=== PATIENT | male | born 1995 | race Caucasian/White ===

== ENCOUNTER 2024-05-26 10:00 | Outpatient (CLI) | payer BC, SELFPAY ==
--- OUTSIDE RECORDS SUMMARY | 2024-05-27 21:29 | XMS_ITS | Encounter Summary ---
Author Organization [facility] Healthcare Address [address] [place] [address] Care Team Providers Care Proposal Writer Name Role Phone Hussein Quintero MD Primary Care Provider [phone] Jose Augustine DPT Unavailable +06-04 Farhad Song DPT Unavailable +06-04 Jose Augustine DPT Unavailable +06-04 Encounter Details Date Type Department Care Team (Late st Contact Info) Description 10/24/2020 Telephone [facility] [place] [facility] [address] [facility] Advanced Medicine [address] [place] [address] William Waters MD [address] [facility] [address] [facility] [phone] [place], [place] [id number] Social History Tobacco Use Types Packs/Day Years Used Date Smoking Tobacco: Never Smokeless Tobacco: Never AUDIT-C Answer Date Recorded Q1: How often do you have a drink containing alc ohol? 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 Author CCM Chronic Pain Care Plan Chronic Care Management Worsening( 11:29 AM CDT) Viry Nick, RN Note: Problem: Chronic Pain Goals: 1. Minimize further functional decline 2. Maximize quality of life 3. Control pain Strategies: - Activity/exercise program recommendation - Conservative stepwise pain medicine strategy with multi-disciplinary approach - Recommend healthy lifestyle strategies and compensatory methods as needed documented as of this encounter Visit Diagnoses Not on filedocumented in this encounter Care Teams Proposal Writer Relationship Specialty Start Date End Date Hussein Quintero MD PCP - General Family Medicine 10/29/19 Jose Augustine DPT [address] [facility] [address] [address] Physical Therapist Physical Therapy 11/13/20 08/09/21 Farhad Song DPT [address] [address] Physical Therapist Physical Therapy 08/10/21 Jose Augustine DPT [address] [facility] [address] [address] Physical Therapist Physical Therapy 08/10/21 10/06/22 documented as of this encounter
--- OUTSIDE RECORDS SUMMARY | 2024-05-27 21:29 | XMS_ITS | Encounter Summary ---
Author Organization [facility] Healthcare Address [address] [place] [address] Care Team Providers Care Checker Dump Grounds Name Role Phone Hussein Quintero MD Primary Care Provider [phone] Jose Augustnie DPT Unavailable +06-04 Farhad Song DPT Unavailable +06-04 Jose Augustine DPT Unavailable +06-04 Reason for Visit * Reason Onset Date Comments Med Refill 10/11/2020 Encounter Details Date Type Department Care Team (Late st Contact Info) Description 10/11/2020 Telephone [facility] [place] [facility] [address] [facility] Advanced Medicine [address] [place] [address] William Waters MD [address] [facility] [phone] [place], [place] [id number] Med Refill Social History Tobacco Use Types Packs/Day Years [...] on file 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 Gender Identity Male 09/09/2020 12:18 PM CDT [...] on filedocumented in this encounter Care Teams Checker Dump Grounds Relationship Specialty Start Date End Date Hussein Quintero MD PCP - General Family Medicine 10/29/19 Jose Augustine DPT [address] [facility] [address] [facility] [place] [address] Physical Therapist Physical Therapy 11/13/20 08/09/21 Farhad Song DPT [address] [facility] [address] [place] [address] Physical Therapist Physical Therapy 08/10/21 Jose Augustine DPT [address] [facility] [address] [facility] [place] [address] Physical Therapist Physical Therapy 08/10/21 10/06/22 documented as of this encounter
--- OUTSIDE RECORDS SUMMARY | 2024-05-27 21:29 | XMS_ITS | Clinical Summary ---
Author Organization [facility] Address [address] [place] [address] Care Team Providers Care Pharmacy Clerk Name Role Phone Unavailable Primary Care Provider Unavailabl e Social History Tobacco Use Types Packs/Day Years Used Date Smoking Tobacco: Never Assessed Sex and Gender Information Value Date Recorded Sex Assigned at Not on file Legal Sex Male 11:37 PM CDT Gender Identity Not on file Sexual Orientation Not on file Plan of Treatment Health Maintenance Due Date Last Done Comments Hepatitis C Virus (HCV) Screening 1993 Influenza Immunization (#1) 2024 03/05/2019 SARS-COV-2 Immunization ( season) 2024 05/15/2021, 04/24/2021 Respiratory Syncytial Virus (RSV) Immunization (Adult) (1 - 1-dose 75+ series) 01/04/2068 Hepatitis B Immunization Completed 994, 1993, 1993 DTaP/Tdap/Td Immunization Discontinued 2018, 08/09/1994, 1993, Additional history exists TdaP Immunization Completed 03/05/2019 Meningococcal Immunization (ACWY) Aged Out No longer eligible based on patient's age to complete this topic Pneumococcal Immunization Combined Aged Out No longer eligible based on patient's age to complete this topic Rotavirus Immunization Aged Out No lo nger eligible based on patient's age to complete this topic
--- OUTSIDE RECORDS SUMMARY | 2024-05-27 21:29 | XMS_ITS | Encounter Summary ---
Author Organization [facility] Address [address] [place] [address] Phone Care Team Providers Care Weave Room Supervisor Name Role Phone Hussein Quintero MD Primary Care Provider + [phone] Farhad Song DPT Unavailable +06-04 Jose Augustine DPT Unavailable +06-045 Encounter Details Date Type Department Care Team (Latest Contact Info) Description 10/26/2021 Orders Only [facility] Scanning, Provider Social History Tobacco Use Types Packs/Day Years Used Date Smoking Tobacco: Never Smokeless Tobacco: Never AUDIT-C Answer Date Recorded Q1: How often do you have a drink containing alc ohol? Monthly or less 06/05/2021 Q2: How many drinks containi ng alcohol do you have on a typical day when you are drinking? 1 or 2 06/05/2021 Q3: How often do you have si x or more drinks on one occasion? 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 Gender Identity Male 09/09/2020 12:18 PM CDT [...] as needed documented as of this encounter Procedures Procedure Name Priority Date/Time Associated Diagnosis Comments SCAN - LABS 10/26/2021 documented in this encounter Results * SCAN - LABS (10/26/2021) us Provider Scanning Final Result documented in this encounter Visit Diagnoses Not on filedocumented in this encounter Care Teams Weave Room Supervisor Relationship Specialty Start Date End Date Hussein Quintero MD PCP - General Family Medicine 10/29/19 Farhad Song DPT [address] [place] [address] Physical Therapist Physical Therapy 08/10/21 Jose Augustine DPT [address] [facility] [address] [address] Physical Therapist Physical Therapy 08/10/21 10/06/22 documented as of this encounter
--- OUTSIDE RECORDS SUMMARY | 2024-05-27 21:29 | XMS_ITS | Encounter Summary ---
Author Organization [facility] Healthcare Address [address] [place] [address] Care Team Providers Care Manager Document Name Role Phone Hussein Quintero MD Primary Care Provider [phone] Jose Augustine DPT Unavailable +06-04 Farhad Song DPT Unavailable +06-04 Jose Augustine DPT Unavailable +06-04 Reason for Visit * Reason Onset Date Comments Pain 03/21/2021 Encounter Details Date Type Department Care Team (Late st Contact Info) Description 03/21/2021 Telephone [facility] [place] [facility] [address] [facility] Advanced Medicine [address] [place] [address] William Waters MD [phone] [place], [place] [id number] Pain Social History Tobacco Use Types Packs/Day Years Used Date Smoking Tobacco: Never Smokeless Tobacco: Never AUDIT-C Answer Date Recorded Q1: How often do you have a drink containing alc ohol? Monthly or less 03/23/2021 Q2: How many drinks containi ng alcohol do you have on a typical day when you are drinking? 1 or 2 03/23/2021 Q3: How often do you have si x or more drinks on one occasion? 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 Gender Identity Male 09/09/2020 12:18 PM CDT [...] on filedocumented in this encounter Care Teams Manager Document Relationship Specialty Start Date End Date Hussein Quintero MD PCP - General Family Medicine 10/29/19 Jose Augustine DPT [address] [facility] [address] [place] [address] Physical Therapist Physical Therapy 11/13/20 08/09/21 Farhad Song DPT [address] [place] [address] Physical Therapist Physical Therapy 08/10/21 Jose Augustine DPT [address] [facility] [address] [place] [address] Physical Therapist Physical Therapy 08/10/21 10/06/22 documented as of this encounter
--- OUTSIDE RECORDS SUMMARY | 2024-05-27 21:29 | XMS_ITS | Clinical Summary ---
Author Organization [facility] Medical [facility] Address [address] [facility] [place] [address] Care Team Providers Care Cook Chef Name Role Phone Hussein Quintero MD Primary Care Provider [phone] Farhad Song DPT Unavailable +[phone] Allergies Active Allergy Reactions Criticality Noted Date Comments Sulfa (Sulfonamide Antibiotics) Unknown Medications acetaminophen-c affeine 500-65 mg tabletIndicatio ns:tension migraines Take 1 tablet by mouth daily as needed (tension migraines) Active calcium carbonate (TUMS) 500 mg (200 mg elemental calcium) chewable tabletIndicatio ns:Heartburn Take 1 tablet/chew tab (500 mg total) by mouth daily as needed for indigestion or heartburn Active gabapentin (NEURONTIN) 300 mg capsuleIndicati ons:pain Take 1 capsule (300 mg total) by mouth 3 (three) times a day as needed (pain) Active senna-docusate (PERICOLACE) 8.6-50 mg Take 1 tablet by mouth daily 30 tablet 2 4 Active HYDROcodone-jane taminophen (NORCO) 5-325 mg per tabletIndicatio ns:Pain Take 1 tablet by mouth every 6 (six) hours as needed for pain 28 tablet 4 Active methocarbamoL (ROBAXIN) 500 mg tabletIndicatio ns:Muscle Spasm Take 1 tablet (500 mg total) by mouth 4 (four) times a day as needed for muscle spasms 45 tablet 3 4 Active Active Problems Problem Noted Date Diagnosed Date 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 Continue low-carb (<150 g/day), low- glycemic diet. Continue metformin. Reviewed potential benefits of GLP-1 RA; he has preferred not to use and injection as he has a 3 yo at home. Discussed that oral semalgutide would likely not be covered and also not ideal with his hectic morning schedule. Discussed option of auotinjector pen so that he does not have separate/exposed needles and he is willing to try Trulicity. No personal or family history of MEN-2 or thyroid CA. Assessment & Plan (12/07/2021 9:44 AM CDT): A1C at 5.8.Discussed insulin resistance including effect on weight and risk for progression to diabetes. Recommended low-carb, low-glycemic diet; choose whole grains and avoid more highly processed carbohydrates. Discussed potential benefits of this with relation to gut microbiome. Referred to ADA and [facility] websites for additional information on topics including glycemic index/carbohydrate choices, protein sources. Discussed use of GLP-1 however he is not interested in using injection given toddler in the home and fear of needles around. Discussed use of metformin and he is interested in trying this. Will start metformin XR 500mg for 7 days to increase to 1000mg daily if tolerating. Metabolic and nutritional disorder 09/03/2021 Assessment & Plan (12/06/2021 6:37 PM CDT): Continue low-carb (<150 g/day), low-glycemic diet. Assessment & Plan (09/03/2021 5:04 PM CDT): Labs. Discussed increased risk for DM in setting of obesity and FHx DM. Discussed insulin resistance including effect on weight and risk for progression to diabetes. Recommended low-carb, low-glycemic diet; choose whole grains and avoid more highly processed carbohydrates. Discussed potential benefits of this w/r/t gut microbiome. Referred to ADA and [facility] websites for additional information on topics including glycemic index/carbohydrate choices, protein sources. More detailed recommendations pending review of labs and food record. Class 2 obesity 09/03/2021 Assessment & Plan (03/11/2022 9:36 AM RISK INTERN): Obesity is improving..Commended on weight loss to date and discussed anticipated health benefits/risk reduction with this degree of loss. Plan: Diet interventions: as noted.., Regular aerobic exercise program discussed. and Medication as prescribed. Assessment & Plan (12/06/2021 6:36 PM CDT): Obesity is improving. Diet interventions: as noted. Regular aerobic exercise program discussed. Assessment & Plan (09/03/2021 5:00 PM CDT): Obesity is unchanged. General weight loss/lifestyle modification strategies discussed (elicit support from others; identify saboteurs; non-food rewards, etc). Diet interventions: as noted. Informal exercise measures discussed, e.g. taking stairs instead of elevator. Regular aerobic exercise program discussed. Referred to PCP for c/o occasional chest discomfort prior to beginning exercise program. More detailed recommendations pending review of labs and food record. Fatigue 09/03/2021 Assessment & Plan (12/06/2021 6:35 PM CDT): Energy better slightly, encouraged to start OTC Vitamin D supplementation of 800 units daily for D insufficiency at 20.3. Assessment & Plan (09/03/2021 4:58 PM CDT): Labs. Discussed importance of adequate sleep; good sleep hygiene in controlling weight as well as for overall health. Weight loss counseling, encounter for 09/03/2021 Assessment & Plan (03/11/2022 9:17 AM RISK INTERN): Reviewed calorie restriction based on BMR as previously detailed. Reviewed recommendation/goal of >/= 150 minutes/week moderate-intensity aerobic exercise. Asked to keep detailed food diary for at least 1 week and bring to next visit and/or continue tracking on phone. Assessment & Plan (12/06/2021 6:35 PM CDT): Reviewed calorie restriction based on BMR as previously detailed. Reviewed recommendation/goal of >/= 150 minutes/week moderate-intensity aerobic exercise. Asked to try to continue tracking diet/drinks. Assessment & Plan (09/03/2021 4:59 PM CDT): Discussed that significant health benefits/risk reduction may be seen with even 5% weight loss. Discussed that weight loss will require calorie deficit. Calculated basal metabolic rate and estimated total energy expenditure; discussed 500-1000 kcal/day deficit to lose 1-2 lb per week. Asked to keep detailed food diary for at least 1 week and bring to next visit. Discussed setting SMART goals. Discussed relatively small, although significant, role of exercise in weight loss; greater importance in weight maintenance as shown in Look Ahead study and National Weight Control Registry. Constipation 09/03/2021 Assessment & Plan (09/03/2021 5:06 PM CDT): Recommended daily fiber supplement containing inulin(fiber chewables) or wheat dextrin(benefiber). Discussed possible benefits with relation to gut microbiome and weight. Miralax prn. Chest discomfort 09/03/2021 Assessment & Plan (09/03/2021 5:22 PM CDT): Described recent chest discomfort with period of dizziness following. Denied current CP, SOB or dizziness. Instructed pt to follow up with PCP tomorrow and to go to ER if chest discomfort returns. Sacroiliitis 11/21/2020 Ocular migraine 11/08/2019 Assessment & Plan (08/31/2021 12:32 PM CDT): Still gets ocular migraine sx. Not unmanageable. Not as visual as more tension around the eye with pressure. Photophobia and needs to close the eye. No associated neurologic symptoms. Normal ocular exam. Offered to consider prophylaxis with medical doctor but pt defers. Consider decreasing stress, caffeine, etc. Call if worsens. Assessment & Plan (11/08/2019 10:22 AM CDT): Still gets ocular migraine sx. Not unmanageable. No associated neurologic symptoms. Normal ocular exam. Offered to consider prophylaxis with medical doctor but pt defers. Consider decreasing stress, caffeine, etc. Call if worsens. Allergic conjunctivitis of both eyes 10/29/2019 Assessment & Plan (10/29/2019 11:30 AM CDT): Add hot compresses with lid scrubs to alleviate crusting of lashes and remove pollen. Recommend trail of lubricant eye drops 4 times/day. If still itchy and symptomatic, try Zaditor OTC drops 2x/s day. Chronic pain 11/18/2015 Lumbar radiculopathy 11/18/2015 Displacement of lumbar disc with radiculopathy 0 11/18/2015 Lumbago 10/27/2015 Hyperlipoproteinemia 07/22/2012 Encounters Date Type Department Care Team Description 03/05/2024 Telephone [facility] [address] [place] [address] Office [facility] [address] [place] [phone] Jim Lopez DO 02/26/2024 12:30 PM CDT Telemedicine [facility] [address] [place] [address] Office [facility] [address] [place] [phone] Jim Lopez DO Lumbar radiculopathy (Primary Dx); Displacement of lumbar disc with radiculopathy 02/26/2024 Orders Only [facility] [address] [place] [address] Office [facility] [address] [place] [phone] Jim Lopez DO Lumbar radiculopathy (Primary Dx) from Last 3 Months Immunizations Name Administration Dates Next Due DTP 1993,1993,1993 DTP / HiB 08/09/1994 Hep B, Adolescent or Pediatric 1993,1992,1993 HiB 1993,1993,1993 Influenza, Quadrivalent, Rec ombinant, Egg Free, Preservative Free, Intramuscular 03/05/2019 MMR 08/09/1994 OPV 1993,1993,1993 Tdap 03/05/2019 Surgical History Surgery Date Site/Laterality Comments INGUINAL HERNIA REPAIR Inguinal Hernia Repair - (Added by TW Conv) OK INJ LUMBAR/SACRAL,W/WO CNTRST Corticosteroid Injection Interlaminar Approach Lumbar - (Added by TW Conv) NOSE SURGERY 05/05/1998 - 05/04/1999 Medical History Medical History Date Comments Low back pain Chronic pain disorder Low back pain Low back pain Family History Medical History Relation Name Comments Diabetes Father HTN Father Hyperlipidemia Father Obesity Father Stroke Father Diabetes Other 1 Family history of diabetes mellitus - (Added by TW Conv) Hypertension Other 2 Family history of hypertension - (Added by TW Conv) Macular degeneration Paternal Grandmother Relation Name Status Comments Father Other 1 Other 2 Paternal Grandmother Social History Tobacco Use Types Packs/Day Years Used Date Smoking Tobacco: Some Days Cigars Started: 2021 Smokeless Tobacco: Never Tobacco Cessation:Ready to Q uit: Not Asked; Counseling Given: Not Answered Comments:Socially AUDIT-C Answer Date Recorded Q1: How often do you have a drink containing alc ohol? 2-4 times a month 01/08/2024 Q2: How many drinks containi ng alcohol do you have on a typical day when you are drinking? 3 or 4 01/08/2024 Q3: How often do you have si x or more drinks on one occasion? Never 01/08/2024 Hunger Vital Sign Answer Date Recorded Within the past 12 months, y ou worried that your food would run out before you got the money to buy more. Never true 08/08/19 23 Within the past 12 months, t he food you bought just didn't last and you didn't have money to get more. Never true 08/07/2022 Personal Safety Answer Date Recorded Have you ever been in or are you currently in a harmful physical or emotional relationship or is someone making you feel afraid or unsafe? 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 file Not on file Not on file Obstetrics History Last Filed Vital Signs Vital Sign Reading Time Taken Comments Blood Pressure 130/78 01/08/2024 3:00 PM CDT Pulse 70 01/08/2024 3:00 PM CDT Temperature 37.1 ??C (98.8 ??F) 01/08/2024 1 2:00 PM CDT Respiratory Rate 24 01/08/2024 3:00 PM CDT Oxygen Saturation 94% 01/08/2024 3:00 PM CDT Inhaled Oxygen Concentration - - Weight 120.4 kg (265 lb 6.4 oz) 01/08/2024 6:09 AM CDT Height 177.8 cm (5' 10) 01/08/2024 6:09 AM CDT Body Mass Index 38.08 01/08/2024 6:09 AM CDT Plan of Treatment Health Maintenance Due Date Last Done Comments Depression Screening 1993 Hepatitis C Screening 1993 Pneumococcal vaccine <65 (1 of 2 - PCV) 1999 Varicella Vaccines (1 of 2 - 13+ 2-dose series) 2006 Regular Well Visit/Exam 18-64 2011 Covid-19 Vaccine ( season) 2024 05/15/2021, 04/24/2021 Influenza Vaccine (#1) 2024 03/05/2019 DTaP/Tdap/Td Vaccine (6 - Td or Tdap) 03/05/2029 03/05/2019, 08/09/1994, 1993, Additional history exists HPV Vaccines Aged Out No longer eligi ble based on patient's age to complete this topic Goals Goal Patient Goal Type Associated Problems Recent Progress Patient-Stated? Author CCM Chronic Pain Care Plan Chronic Care Management Worsening( 11:29 AM CDT) No Viry Rivera, RN Note: Problem: Chronic Pain Goals: 1. Minimize further functional decline 2. Maximize quality of life 3. Control pain Strategies: - Activity/exercise program recommendation - Conservative stepwise pain medicine strategy with multi-disciplinary approach - Recommend healthy lifestyle strategies and compensatory methods as needed Insurance BLUE ACCESS OOS BLUE ACCESS OOS Care Teams Cook Chef Relationship Specialty Start Date End Date Hussein Quintero MD PCP - General Family Medicine 10/29/19 Farhad Song, KRYSTA [address] [facility] [address] [place] [address] Physical Therapist Physical Therapy 08/10/21
--- OUTSIDE RECORDS SUMMARY | 2024-05-27 21:29 | XMS_ITS | Referral Summary ---
Author Organization [facility] 2 Address [address] [place] [address] Care Team Providers Care Casing Fluid Tender Name Role Phone Hussein Quintero MD Primary Care Provider + -[phone] Farhad Song DPT Unavailable +06-04 [phone] Encounters Date Type Department Care Team Description 03/05/2024 Telephone [facility] [address] [place] [address] Office [facility] [address] [place] [phone] Jim Lopez DO 02/26/2024 Orders Only [facility] [address] [place] [address] Office [facility] [address] [place] [phone] Jim Lopez DO Lumbar radiculopathy (Primary Dx) 02/26/2024 12:30 PM CDT Telemedicine [facility] [address] [place] [address] Office [facility] [address] [place] [phone] Jim Lopez DO Lumbar radiculopathy (Primary Dx); Displacement of lumbar disc with radiculopathy from Last 3 Months Allergies Active Allergy Reactions Criticality Noted Date [...] 12/06/2021 Assessment & Plan (03/11/2022 9:35 AM CONCERT PIANIST): Reviewed most recent labs available. Continue low-carb [...] to gut microbiome. Referred to ADA and [employer] websites for additional information on topics including [...] w/r/t gut microbiome. Referred to ADA and [facility] websites for additional information on topics including glycemic index/carbohydrate choices, protein sources. More detailed recommendations pending review of labs and food record. Class 2 obesity 09/03/2021 Assessment & Plan (03/11/2022 9:36 AM CONCERT PIANIST): Obesity is improving..Commended on weight loss to [...] 09/03/2021 Assessment & Plan (03/11/2022 9:17 AM CONCERT PIANIST): Reviewed calorie restriction based on BMR as [...] radiculopathy 0 11/18/2015 Lumbago 10/27/2015 Hyperlipoproteinemia 07/22/2012 Immunizations Name Administration Dates Next Due DTP 1993,1993,1993 DTP / HiB 08/09/1994 Hep B, Adolescent or Pediatric 1993,1992,1993 HiB 1993,1993,1993 Influenza, Quadrivalent, Rec ombinant, Egg Free, Preservative Free, Intramuscular 03/05/2019 MMR 08/09/1994 OPV 1993,1993,1993 Tdap 03/05/2019 Social History Tobacco Use Types Packs/Day Years [...] on file Legal Sex Male 9:57 PM CONCERT PIANIST Gender Identity Male 09/09/2020 12:18 PM CDT Sexual Orientation Straight 09/09/2020 12 :18 PM CDT 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 Author CCM Chronic Pain Care Plan Chronic Care Management Worsening( 11:29 AM CDT) Viry Nick RN Note: Problem: Chronic Pain Goals: 1. Minimize further functional decline 2. Maximize quality of life 3. Control pain Strategies: - Activity/exercise program recommendation - Conservative stepwise pain medicine strategy with multi-disciplinary approach - Recommend healthy lifestyle strategies and compensatory methods as needed Insurance [employer] OOS [employer] OOS BLUE ACCESS OOS Care Teams Casing Fluid Tender Relationship Specialty Start Date End Date Hussein Quintero MD PCP - General Family Medicine 10/29/19 Farhad Song, KRYSTA [address] [facility] [address] [place] [address] Physical Therapist Physical Therapy 08/10/21
--- OUTSIDE RECORDS SUMMARY | 2024-05-27 21:29 | XMS_ITS | Encounter Summary ---
Author Organization [facility] Healthcare Address [address] [place] [address] Care Team Providers Care Line Up Machine Operator Name Role Phone Hussein Quintero MD Primary Care Provider +[phone] Jose Augustine DPT Unavailable +06-04 Farhad Song DPT Unavailable +06-04 Jose Augustine DPT Unavailable +06-04 Reason for Visit * Reason Onset Date Comments Prior Auth 06/08/2021 Lidocaine Patch 5% Encounter Details Date Type Department Care Team (Late st Contact Info) Description 06/08/2021 Telephone [facility] [place] [facility] [address] [facility] Advanced Medicine [address] [place] [address] William Waters MD [address] 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 Gender Identity Male 09/09/2020 12:18 PM CDT [...] on filedocumented in this encounter Care Teams Line Up Machine Operator Relationship Specialty Start Date End Date Hussein Quintero MD PCP - General Family Medicine 10/29/19 Jose Augustine DPT [address] [place] [id number] [address] Physical Therapist Physical Therapy 11/13/20 08/09/21 Farhad Song DPT [address] [address] Physical Therapist Physical Therapy 08/10/21 Jose Augustine DPT 4[address] [facility] [address] [address] Physical Therapist Physical Therapy 08/10/21 10/06/22 documented as of this encounter
--- OUTSIDE RECORDS SUMMARY | 2024-05-27 21:29 | XMS_ITS | Continuity of Care Document ---
Author Organization [facility] Address [address] [place] [address] [address] [place] [address] Phone Care Team Providers Care Mayonnaise Mixer Name Role Phone Unavailable Unavailable Unavailable Advance Directives Directive Yes / No Effective Date File Name No Information Encounters Encounter Description Practice Location Reason(s) For Visit Diagnoses Date Provider Providers Copied on Encounter [facility], [address], [place], [place], [id number], [place] tel:[phone] SEC López LOVELACE Professional No Information 1 No Information Family History Family Member Type Diagnosis Age At Onset No Information Payers Payer name Insurance type Covered alliance party ID Authoriza tion(s) No Information Social History Type Description Quantity Date Captured Comments Sex Male Smoking Status No Information Chief Complaint And Reason For Visit No Information Reason For Referral Reason For Referral No Information History Of Present Illness Encounter Date Complaint History Of Prese nt Illness No Information Functional Status Date Functional Assessmen t No Information Instructions Date Instruction Additional Infor mation No Information Assessments Type Assessment Date No Information Patient Care Teams Name Effective Dates (start - stop) Status Members No Information
--- OUTSIDE RECORDS SUMMARY | 2024-05-27 21:29 | XMS_ITS | Encounter Summary ---
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 Gender Identity Male 09/09/2020 12:18 PM [...] Date/Time Associated Diagnosis Comments SCAN - LABS 12/04/2021 documented in this encounter Results * SCAN - LABS (12/04/2021) us Provider Scanning Final Result documented in this encounter Visit Diagnoses Not on filedocumented in this encounter Care Teams Senior Net Web Developer Relationship Specialty Start Date End Date Hussein Quintero MD PCP - General Family Medicine 10/29/19 Farhad Song DPT [id number] [place] [address] Physical Therapist Physical Therapy 08/10/21 Jose Augustine DPT 4[address] [facility] [address] [address] Physical Therapist Physical Therapy 08/10/21 10/06/22 documented as of this encounter
--- OUTSIDE RECORDS SUMMARY | 2025-02-07 13:56 | XMS_ITS | Encounter Summary ---
Author Organization [facility] Healthcare Address [address] [place] [address] Care Team Providers Care Mechanical Project Engineer Name Role Phone Hussein Quintero MD Primary Care Provider +[phone] Jose Augustine DPT Unavailable +06-04 Farhad Song DPT Unavailable +06-04 Jose Augustine DPT Unavailable +06-04 Encounter Details Date Type Department Care Team (Late st Contact Info) Description 10/24/2020 Telephone [facility] [place] [facility] [address] [facility] Advanced Medicine [address] [place] [address] William Waters MD [address] [facility] [address] [facility] [phone] [place], [place] [id number] Social History Tobacco Use Types Packs/Day Years [...] on file 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 [address] [address] Physical Therapist Physical Therapy 11/13/20 08/09/21 Farhad Song DPT [address] [address] Physical Therapist Physical Therapy 08/10/21 Jose Augustine DPT [address] [facility] [address] [address] Physical Therapist Physical Therapy 08/10/21 10/06/22 documented as of this encounter
--- OUTSIDE RECORDS SUMMARY | 2025-02-07 13:56 | XMS_ITS | Encounter Summary ---
Author Organization [facility] Healthcare Address [address] [place] [address] Care Team Providers Care Venipuncturist Name Role Phone Hussein Quintero MD Primary Care Provider +[phone] Jose Augustine DPT Unavailable +06-04 Farhad Song DPT Unavailable +06-04 Jose Augustine DPT Unavailable +06-04 Reason for Visit * Reason Onset Date Comments Med Refill 10/11/2020 Encounter Details Date Type Department Care Team (Late st Contact Info) Description 10/11/2020 Telephone [facility] [place] [facility] [address] [facility] Advanced Medicine [address] [place] [address] William Waters MD [phone] [place], [place] [id number] Med Refill Social History Tobacco Use Types [...] on file 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 [address] [place] [address] Physical Therapist Physical Therapy 08/10/21 Jose Augustine DPT [address] [facility] [address] [address] [place] [address] Physical Therapist Physical Therapy 08/10/21 10/06/22 documented as of this encounter
--- OUTSIDE RECORDS SUMMARY | 2025-02-07 13:56 | XMS_ITS | Clinical Summary ---
Author Organization [facility] Medical [facility] 2 Address [address] [facility] [place] [address] Care Team Providers Care Marine Equipment Engineer Name Role Phone Hussein Quintero MD Primary Care Provider +[phone] Farhad Song DPT Unavailable +06-04 [phone] Allergies Active Allergy Reactions Criticality Noted Date [...] muscle spasms 45 tablet 3 4 Active Additional Information Patient not taking.Reported on 10/27/2024 PARoxetine (PAXIL) 20 mg tablet 5 Active Xyosted 75 mg/0.5 mL auto-injector 5 Active Active Problems Problem Noted Date Diagnosed Date Displacement of lumbar inter vertebral disc with radiculopathy 01/08/2024 Cervicalgia 09/26/2023 Chronic use of opiate drug for therapeutic purpo se 08/10/2022 Prediabetes 12/06/2021 Assessment & Plan (03/11/2022 9:35 AM FULLING MILL OPERATOR): Reviewed most recent labs available. Continue low-carb [...] to gut microbiome. Referred to ADA and [facility] websites for additional information on topics [...] w/r/t gut microbiome. Referred to ADA and [employer] websites for additional information on topics including glycemic index/carbohydrate choices, protein sources. More detailed recommendations pending review of labs and food record. Class 2 obesity 09/03/2021 Assessment & Plan (03/11/2022 9:36 AM FULLING MILL OPERATOR): Obesity is improving..Commended on weight loss to [...] 09/03/2021 Assessment & Plan (03/11/2022 9:17 AM FULLING MILL OPERATOR): Reviewed calorie restriction based on BMR as [...] 0 11/18/2015 Lumbago 10/27/2015 Hyperlipoproteinemia 07/22/2012 Immunizations Immunization Administration Dates Next Due DTP 1993,1993,1993 DTP / HiB 08/09/1994 Hep B, Adolescent or Pediatric 1993,1992,1993 HiB 1993,1993,1993 Influenza, Quadrivalent, Rec ombinant, Egg Free, Preservative Free, Intramuscular 03/05/2019 MMR 08/09/1994 OPV 1993,1993,1993 Tdap 03/05/2019 Surgical History Surgery Date Site/Laterality Comments INGUINAL HERNIA REPAIR Inguinal Hernia Repair - (Added by TW Conv) NOSE SURGERY 05/05/1998 - 05/04/1999 BACK SURGERY Medical History Medical History Date Comments Low back pain Chronic pain disorder Morbid obesity (HCC) Family History Medical History Relation Name Comments COPD Father [place] Paulo Diabetes Father [place] Paulo HTN Father [place] Paulo Hyperlipidemia Father [place] Paulo Hypertension Father [place] Schlewesley Obesity Father [place] Schlewesley Stroke Father [place] Paulo Cancer Maternal Grandfather Brayan Kelley Diabetes Other 1 Family history of diabetes mellitus - (Added by TW Conv) Hypertension Other 2 Family history of hypertension - (Added by TW Conv) Heart attack Paternal Grandfather Great Grandfather Macular degeneration Paternal Grandmother Relation Name Status Comments Father [place] Bates Maternal Grandfather Brayan Kelley Alive Other 1 Other 2 Paternal Grandfather Great Grandfather Alive Paternal Grandmother Social History Tobacco Use Types Packs/Day Years Used Date Smoking Tobacco: Some Days Cigars Started: 2021 Passive Smoke Exposure: Past Smokeless Tobacco: Never Tobacco Cessation:Ready to Q uit: Not Asked; Counseling Given: Not Answered Comments:Socially AUDIT-C Answer Date Recorded Q1: How often do you have a drink containing alc ohol? 2-4 times a month 10/27/2024 Q2: How many drinks containi ng alcohol do you have on a typical day when you are drinking? 1 or 2 10/27/2024 Q3: How often do you have si x or more drinks on one occasion? 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 Not on file Not on file Not on file Obstetrics History Last Filed Vital Signs Vital Sign Reading Time Taken Comments Blood Pressure 139/91 10/27/2024 2:30 PM CDT Pulse 79 10/27/2024 2:30 PM CDT Temperature 36.7 C (98.1 F) 10/27/2024 2:30 PM CDT Respiratory Rate 24 01/08/2024 3:00 PM CDT Oxygen Saturation 95% 10/27/2024 2:30 PM CDT Inhaled Oxygen Concentration - - Weight 126.8 kg (279 lb 9.6 oz) 10/27/2024 2:30 PM CDT Height 177.8 cm (5' 10) 10/27/2024 2:30 PM CDT Body Mass Index 40.12 10/27/2024 2:30 PM CDT Plan of Treatment Health Maintenance Due Date Last Done Comments Depression Screening 1993 Hepatitis C Screening 1993 Varicella Vaccines (1 of 2 - 13+ 2-dose series) 2006 Regular Well Visit/Exam 18-64 2011 Pneumococcal vaccine <65 (1 of 2 - PCV) 01/04/2012 HPV Vaccines (1 - 3-dose SCD M series) 01/04/2020 Covid-19 Vaccine (3 - 2024-2 6 season) 2025 05/15/2021, 04/24/2021 Influenza Vaccine (#1) 2025 03/05/2019 DTaP/Tdap/Td Vaccine (6 - Td or Tdap) 03/05/2029 03/05/2019, 08/09/1994, 1993, Additional history exists Hepatitis B Screening Completed 1993 , 1993, 1993 Goals Goal Patient Goal Type Associated Problems Recent Progress Patient-Stated? Author CCM Chronic Pain Care Plan Chronic Care Management Worsening( 11:29 AM CDT) Vriy Nick, RN Note: Problem: Chronic Pain Goals: 1. Minimize further functional decline 2. Maximize quality of life 3. Control pain Strategies: - Activity/exercise program recommendation - Conservative stepwise pain medicine strategy with multi-disciplinary approach - Recommend healthy lifestyle strategies and compensatory methods as needed Insurance [employer] OOS [employer] ACCESS OOS [employer] ACCESS OOS Care Teams Marine Equipment Engineer Relationship Specialty Start Date End Date Hussein Quintero MD PCP - General Family Medicine 10/29/19 Farhad Song DPT 4[address] [facility] [address] [place] [address] Physical Therapist Physical Therapy 08/10/21
--- OUTSIDE RECORDS SUMMARY | 2025-02-07 13:56 | XMS_ITS | Clinical Summary ---
Author Organization [facility] Address [address] [place] [address] Care Team Providers Care Paint Mixer Machine Name Role Phone Unavailable Primary Care Provider [...] Comments Hepatitis C Virus (HCV) Screening 1993 Human Papillomavirus (HPV) Immunization (1 - 3-dose SCDM series) 01/04/2020 Influenza Immunization (#1) 2025 03/05/2019 SARS-COV-2 Immunization ( season) 2025 05/15/2021, 04/24/2021 Respiratory Syncytial Virus (RSV) Immunization [...]
--- OUTSIDE RECORDS SUMMARY | 2025-02-07 13:56 | XMS_ITS | Encounter Summary ---
Author Organization [facility] Healthcare Address [address] [place] [address] Care Team Providers Care Pilates Instructor Name Role Phone Hussein Quintero MD Primary Care Provider +[phone] Jose Augustine DPT Unavailable +06-04 Farhad Song DPT Unavailable +06-04 Jose Augustine DPT Unavailable +06-04 Reason for Visit * Reason Onset Date Comments Prior Auth 06/08/2021 Lidocaine Patch 5% Encounter Details Date Type Department Care Team (Late st Contact Info) Description 06/08/2021 Telephone [facility] [place] [facility] [address] [facility] Advanced Medicine [address] [place] [address] William Waters MD 49[address] [facility] [phone] [place] [address] Prior Auth (Lidocaine Patch 5% ) Social [...] on file Legal 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
--- OUTSIDE RECORDS SUMMARY | 2025-02-07 13:56 | XMS_ITS | Encounter Summary ---
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
--- OUTSIDE RECORDS SUMMARY | 2025-02-07 13:56 | XMS_ITS | Encounter Summary ---
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
--- OUTSIDE RECORDS SUMMARY | 2025-02-07 13:56 | XMS_ITS | Encounter Summary ---
Author Organization [facility] Healthcare Address [address] [place] [address] Care Team Providers Care Slurry Plant Operator Name Role Phone Hussein Quintero MD Primary Care Provider +[phone] Jose Augustine DPT Unavailable +06-04 Farhad Song DPT Unavailable +06-04 Jose Augustine DPT Unavailable +06-04 Reason for Visit * Reason Onset Date Comments Pain 03/21/2021 Encounter Details Date Type Department Care Team (Late st Contact Info) Description 03/21/2021 Telephone [facility] [place] [facility] [address] [facility] Advanced Medicine [address] [place] [address] William Waters MD [phone] [place], [place] [id number] Pain Social History Tobacco Use Types Packs/Day [...] on file 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 Author CCM Chronic Pain Care Plan Chronic Care Management Worsening( 11:29 AM CDT) Viry Nick, MARGUERITE Note: Problem: Chronic Pain Goals: 1. Minimize further functional decline 2. Maximize quality of life 3. Control pain Strategies: - Activity/exercise program recommendation - Conservative stepwise pain medicine strategy with multi-disciplinary approach - Recommend healthy lifestyle strategies and compensatory methods as needed documented as of this encounter Visit Diagnoses Not on filedocumented in this encounter Care Teams Slurry Plant Operator Relationship Specialty Start Date End Date Hussein Quintero MD PCP - General Family Medicine 10/29/19 Jose Augustine, IDAT [address] [facility] [address] [place] [address] Physical Therapist Physical Therapy 11/13/20 08/09/21 Farhad Song DPT [address] [place] [address] Physical Therapist Physical Therapy 08/10/21 Jose Augustine DPT [address] [facility] [address] [place] [address] Physical Therapist Physical Therapy 08/10/21 10/06/22 documented as of this encounter
--- NOTE | 2025-02-20 19:32 | P.SLEEP_ITS ---
Sleep Study - Home Unattended Date of Study: 05/26/24 Ordering Provider: Hussein Quintero MD Interpreting Provider: Shahana Ochoa MD Home Sleep Study Type: Watch PAT Height: 1.78 m Weight: 121.109 kg Body Mass Index: 38.2 Neck Circumference (inches): 17.5 [place]: 0 Reason for Sleep Study Fatigue, abnormal sleep pattern, anxiety, behavioral changes He performed the home sleep test on Feb 02, 2025. Sleep History Mathtew Bates is a 30-year-old man who has metabolic syndrome and behavioral changes with irritability and abnormal weight gain. He did not complete the sleep questionnaire so details about his sleep history are not available. The patient received the home sleep test May 26, 2024. He completed the study in February 2025. His primary care physician indicates that the patient complained of daytime sleepiness, difficulty while sleeping, Irregular sleep pattern, anxiety, intense fatigue, lethargy and malaise. He had a low testosterone level. His irritability and anger improved with Paxil. [facility] Past Medical History Medical History Unspecified vitamin D deficiency Surgical History Surgical History S/P lumbar discectomy Social History Social History Smoking status: Never smoker Tobacco type: cigars Alcohol intake: current Substance use type: does not use Lack of Transportation: No Lack of Food: Never True Current Housing: I Have Housing Concerned About Future Housing: No Difficulty Paying Gas/Electric Bills: No Difficulty Paying for Meds: No Currently Unemployed: No Education: Bachelor's Degree Difficulty w/ Childcare or Family Care: No Medications Home Medications ?Medication ?Instructions ?Recorded ?Confirmed ?Type hydrocortisone acetate 25 mg 25 mg RECTAL BID #12 ea 0 12/27/24 12/27/24 Rx rectal suppository testosterone cypionate 200 mg/mL 400 mg (2 mL) IM ART HLY 3 months 01/12/25 Rx intramuscular oil #10 mL (Depo-Testosterone) montelukast 10 mg tablet 10 mg PO DAILY #90 tabs 02/02 07/27 Rx Sleep Procedure The sleep study was completed using WatchPAT a technically adequate device with seven channels: peripheral arterial tone, actigraphy, body position, snore, respiratory movement, pulse oximetry, sleep staging, and heart rate. Prior to using the device, the patient received verbal and written instructions for its application and was provided with the help desk phone number for additional telephonic instruction with 24-hour availability of qualified personnel to ans wer questions. Sleep Architecture The total recording time is 7 hrs, 24 min. The total sleep time is 6 hrs, 58 min. Sleep latency is 17 minutes. REM latency is 33 minutes. The patient had 2 episodes of waking. Sleep architecture shows 26.1% deep sleep, 41.4% light sleep, and 32.5% stage REM. The patient spent 93.6% of total sleep time in the supine position. Sleep efficiency was 94%. Respiratory Analysis The overall AHI (pAHI 3%:) is 23.1. The central AHI is 1.3. The AHI was 8.1 in NREM and 54.4 in REM sleep. The AHI was 23.5 in Supine and 17.8 in Non-supine sleep. Percent of Leonel Ernst respirations is 0%. Oximetry Data The oxygen desaturation index (KAMRAN 4%:) is 13.6. The mean saturation is 93%, and the lowest saturation is 81%. Time spent with saturation < 88% is 4.7 minutes. Snoring Profile Snoring average intensity is 42 dB. The patient snored above 45 decibels for 79.0 minutes, 18.9% of sleep time. Cardiac Profile The average pulse rate is 78 beats per minutes. The lowest pulse rate is 49 bpm. The highest pulse rate is 100 bpm. Cardiac rhythm analysis in sleep does not show atrial fibrillation. Assessment and Plan Assessment and Plan (1) Obstructive sleep apnea: Code(s): G47.33 - Obstructive sleep apnea (adult) (pediatric) Status: Acute Assessment and Plan: This home sleep test using WatchPat performed on February 02, 2025 shows moderate obstructive sleep apnea, the apnea-hypopnea index is 23.1 (p>3%) with desaturation to 81% and 4.7 minutes spent below 88%. He had loud continuous snoring and snoring exceeding 45 decibels for 79 minutes. AHI using 4% criteria is moderately elevated at 16.3. His central apnea-hypopnea index was 1.3, within the normal range. He is a candidate for PAP therapy. I recommend that this patient be prescribed Resmed AirSense 11 AutoPAP 5-15 cm H2O, CPAP mask/filters/tubing and humidifier chamber. This should be used with all episodes of sleep. Compliance should be reviewed within 31-90 days of starting therapy for usage greater than 4 hours per night greater than 70% of the nights. The patient should be asked about symptoms such as excessive daytime sleepiness, quality of sleep, decreased nocturia, increased mental functioning such as memory, mood, and concentration. If this is not tolerated, consider in-lab CPAP titration with a sleep aid to use, if needed, during the titration. He should not nap on the day of the titration. BMI is 38.3. Weight management is advised. Clinical data suggests that weight loss of 10% can reduce the severity of respiratory events and snoring and improve AHI by as much as 25%. Data The data obtained during this sleep study is adequate for interpretation. Certification This sleep study has been reviewed by a board certified sleep medicine physician.
[2025-02-20 19:34] VITALS: BMI 38.2
--- NOTE | 2025-03-14 11:55 | P.SLEEP_ITS ---
Sleep Study - Home Unattended Date of Study: 05/26/24 Ordering Provider: Hussein Quintero MD Interpreting Provider: Shahana Ochoa MD Home Sleep Study Type: Watch PAT Height: 1.78 m Weight: 121.109 kg Body Mass Index: 38.2 Neck Circumference (inches): 17.5 [place]: 0 Reason for Sleep Study Obesity, fatigue, snoring Sleep History Matthew Bates is a 30-year-old man with hypogonadism, metabolic syndrome, fatigue, IBS, stress. He completed at home sleep test on Feb 11, 2025. His primary care doctor ordered a home sleep test for diagnosis. [facility] Past Medical History Medical History Unspecified vitamin D deficiency Surgical History Surgical History S/P lumbar discectomy Social History Social History Smoking status: Never smoker Tobacco type: cigars Alcohol intake: current Substance use type: does not use Lack of Transportation: No Lack of Food: Never True Current Housing: I Have Housing Concerned About Future Housing: No Difficulty Paying Gas/Electric Bills: No Difficulty Paying for Meds: No Currently Unemployed: No Education: Bachelor's Degree Difficulty w/ Childcare or Family Care: No Medications Home Medications ?Medication ?Instructions ?Recorded ?Confirmed ?Type hydrocortisone acetate 25 mg 25 mg RECTAL BID #12 ea 0 12/27/24 12/27/24 Rx rectal suppository testosterone cypionate 200 mg/mL 400 mg (2 mL) IM ART HLY 3 months 01/12/25 Rx intramuscular oil #10 mL (Depo-Testosterone) montelukast 10 mg tablet 10 mg PO DAILY #90 tabs 02/02 07/27 Rx CPAP #1 ea 02/23/25 Rx Sleep Procedure The sleep study was completed using WatchPAT a technically adequate device with seven channels: peripheral arterial tone, actigraphy, body position, snore, respiratory movement, pulse oximetry, sleep staging, and heart rate. Prior to using the device, the patient received verbal and written instructions for its application and was provided with the [employer] phone number for additional telephonic instruction with 24-hour availability of qualified personnel to answer questions. Sleep Architecture The total recording time is 7 hrs, 24 min. The total sleep time is 6 hrs, 58 min. Sleep latency is 17 minutes. REM latency is 33 minutes. The patient had 2 episodes of waking. Sleep architecture shows 26.1% deep sleep, 41.4% light sleep, and 32.5% stage REM. The patient spent 93.6% of total sleep time in the supine position. Sleep efficiency was 94%. Respiratory Analysis The overall AHI (pAHI 3%:) is 23.1. The central AHI is 1.3. The AHI was 8.1 in NREM and 54.4 in REM sleep. The AHI was 23.5 in Supine and 17.8 in Non-supine sleep. Percent of Leonel Ernst respirations is 0%. Oximetry Data The oxygen desaturation index (KAMRAN 4%:) is 13.6. The mean saturation is 93%, and the lowest saturation is 81%. Time spent with saturation < 88% is 4.7 minutes. Snoring Profile Snoring average intensity is 42 dB. The patient snored above 45 decibels for 79.0 minutes, 18.9% of sleep time. Cardiac Profile The average pulse rate is 78 beats per minutes. The lowest pulse rate is 49 bpm. The highest pulse rate is 100 bpm. Cardiac rhythm analysis in sleep does not show atrial fibrillation. Assessment and Plan Assessment and Plan (1) Obstructive sleep apnea: Code(s): G47.33 - Obstructive sleep apnea (adult) (pediatric) Status: Acute Assessment and Plan: This home sleep test using WatchPat shows an AHI of 23.1, desaturation to 81%, 4.7 minutes spent below 88%, and snoring. He is a candidate for treatment with APAP. I recommend that this patient be prescribed Resmed AirSense 11 AutoPAP 5- 15 cm H2O, CPAP mask/filters/tubing and humidifier chamber. This should be used with all episodes of sleep. Compliance should be reviewed within 31-90 days of starting therapy for usage greater than 4 hours per night greater than 70% of the nights. The patient should be asked about symptoms such as excessive daytime sleepiness, quality of sleep, decreased nocturia, increased mental functioning such as memory, mood, and concentration. BMI is 38. Weight management is advised. Clinical data suggests that weight loss of 10% can reduce the severity of respiratory events and snoring and improve AHI by as much as 25%. Data The data obtained during this sleep study is adequate for interpretation. Certification This sleep study has been reviewed by a board certified sleep medicine physician.
== END 2025-02-07 13:02 | disposition home or self-care (01) ==
LOC: ANHCSM 02-07 13:02
PROVIDERS: PCP Family Medicine; Visit Provider Family Medicine
DX: G47.30 Sleep apnea, unspecified (principal); G47.33 Obstructive sleep apnea (adult) (pediatric)
CPT/HCPCS: 95800